=== PATIENT | female | born 1975 | race Caucasian/White ===

== ENCOUNTER 2016-11-19 20:17 | Inpatient (IN) | payer OTHER, MEDICARE ==
[~2016-11-19 20:17] MED LIST: CARA1TAB6 PO; CYCL1TAB29 PO; GABA600T PO; OMEP40CA2 PO; OXYM40TA5 PO; PERC10TA27 PO; PROM25TA10 PO; PROT40TA PO; TOPI200 PO; TRAZ300T2 PO; XANA2TAB2 PO; ZOFR4TAB3 SL
[2016-11-19] MEDS ORDERED: SODIUM CHLOR 0.9% 1000 ML INJ 1,000 ML IV SCH (21:59)
[2016-11-19] MEDS ORDERED: NALOXONE HCL 0.4 MG/ML AMP IV PRN (22:00)
[2016-11-19] MEDS ORDERED: SODIUM CHLORIDE 0.9% FLUSH 10 ML FLUSH IV FLUSH PRN (22:00)
[2016-11-20] VITALS (7 sets, daily range): BP systolic 136–157; BP diastolic 91–104; PULSE 90–109; RESP 17–20; TEMP 97.8–99.9; O2SAT 97–99
[2016-11-20] MEDS: HYDROmorphone HCL PF 1 MG/ML VIAL IV PUSH PRN ×6 (00:47→23:10)
[2016-11-20] MEDS: METOCLOPRAMIDE HCL 10 MG/2 ML VIAL IV PUSH PRN ×3 (00:48→18:08)
--- NOTE | 2016-11-20 01:12 | HHI.HP ---
HPI Service [facility] Primary Care Physician Non-Staff Admission Diagnosis Diagnoses: Travel History International Travel<30 Days: No Contact w/Intl Traveler <30 Da: No Traveled to Known Affected Are: No History of Present Illness History from patient, ER physician at [facility], and review of medical records. Patient herself is quite sleepy at the time of my exam. She is somewhat of a poor historian. She tells me that she came to the hospital because she was having nausea and vomiting for a few days. She reports she is still moving her bowels. Denies any blood in her vomitus. Denies fever. Apart from the above, patient denies any recent chest pain/palpitations/ shortness of breath. Denies any hematemesis/hematochezia/melena. Patient reports she is on pain medications at home. However cannot specify which ones. She also reports that she does have quite extensive surgeries previously. Review of Systems Except as stated in HPI: all other systems reviewed are Neg Past Family Social History Past Medical History Denies any medical conditions Past Surgical History Cholecystectomy Hysterectomy Exploratory laparotomy ORIF of mandible Allergies: Coded Allergies: Fentanyl (Verified Allergy, Severe, Rash, 11/19/16) Penicillin (Verified Allergy, Severe, BREAKS OUT, 11/19/16) Topamax (Verified Allergy, Severe, Rash, 11/19/16) Toradol (Verified Allergy, Severe, Rash, 11/19/16) Family History mom asthma Social History Reports she smokes a pack a day. Denies any alcohol abuse or drug abuse. Physical Exam Vital Signs Vital Signs Date Time Temp Pulse Resp B/P Pulse Ox O2 Delivery O2 Flow Rate FiO2 11/20/16 00:15 97.8 109 18 136/94 98 Physical Exam GENERAL: This is a well-nourished, well-developed patient, in no apparent distress. Quite sleepy. SKIN: No rashes, ecchymoses or lesions. Cool and dry. HEAD: Atraumatic. Normocephalic. No temporal or scalp tenderness. EYES:No scleral icterus. No injection or drainage. ENT: Nose without bleeding, purulent drainage or septal hematoma. Airway patent. NECK: Trachea midline. No JVD CARDIOVASCULAR: Regular rate and rhythm without murmurs, gallops, or rubs. RESPIRATORY: Clear to auscultation. Breath sounds equal bilaterally. No wheezes , rales, or rhonchi. GASTROINTESTINAL: Abdomen soft, tenderness diffusely. Scant bowel sounds., nondistended. No guarding. MUSCULOSKELETAL: Extremities without clubbing, cyanosis, or edema.No calf tenderness. NEUROLOGICAL: Awake and alert.Motor and sensory grossly within normal limits. Normal speech. Laboratory Labs from [facility] reviewed Imaging Imaging [facility]. Evidence of small bowel obstruction. Multiple loops of bowels dilated. Assessment and Plan Assessment and Plan Impression: Small bowel obstruction Nausea/vomitingsecondary to above Left femoral central lineplaced in ER for IV access Plan: Nothing by mouth. IV hydration. Pain control. NG tube was ordered and it seems that multiple nursing staff at [facility], and [facility] talked to patient in order to place this NG tube and patient repeatedly refused. I myself have also spoken to patient although she was quite sleepy regarding this. She again refused placement of NG tube. General surgery consult. Vascular ultrasound consult for peripheral IV. Once IVs obtained, discontinue femoral line. DVT prophylaxiswith SCD. GI prophylaxis on pantoprazole. Discussed Condition With Patient, ER physician, patient's nurse Physician Certification 2 Midnight Certification Type: Admission for Inpatient Services Order for Inpatient Services The services are ordered in accordance with Medicare regulations or non- Medicare payer requirements, as applicable. In the case of services not specified as inpatient-only, they are appropriately provided as inpatient services in accordance with the 2-midnight benchmark. Estimated LOS (days): 2 days is the estimated time the patient will need to remain in the hospital, assuming treatment plan goals are met and no additional complications. Post-Hospital Plan: Home Alisha Howard MD Nov 20, 2016 01:12
[2016-11-20] MEDS: ONDANSETRON HCL 4 MG/2 ML VIAL IVP PRN ×3 (03:40→22:03)
[2016-11-20 05:15] LABS: AUTOMATED NEUTROPHIL # 8.7 TH/MM3 (1.8-7.7); BASOPHIL % 0.3 % (0.0-2.0); EOSINOPHIL # 0.1 TH/MM3 (0-0.4); HEMATOCRIT 40.8 % (35.0-46.0); HEMO FLAGS DIFF FINAL; LYMPH % 11.8 % (9.0-44.0); LYMPHOCYTE # 1.3 TH/MM3 (1.0-4.8); MEAN CORPUSCULAR HEMOGLOBIN 29.8 PG (27.0-34.0); MEAN CORPUSCULAR HGB CONC 33.1 % (32.0-36.0); MONO % 7.3 % (0.0-8.0); NEUT % 79.6 % (16.0-70.0); PLATELET COUNT 235 TH/MM3 (150-450); RED BLOOD COUNT 4.53 MIL/MM3 (4.00-5.30); RED CELL DISTRIBUTION WIDTH 15.4 % (11.6-17.2); WHITE BLOOD COUNT 10.9 TH/MM3 (4.0-11.0)
[2016-11-20 05:41] LABS: POTASSIUM 3.6 MEQ/L (3.5-5.1)
[2016-11-20] MEDS ORDERED: HYDROmorphone HCL PF 1 MG/ML VIAL IV PRN ×2 (08:30→11:30)
[2016-11-20] MEDS: NS + KCL 20 MEQ INJ 1,000 ML IV SCH ×2 (09:19→19:25)
[2016-11-20] MEDS: PANTOPRAZOLE SODIUM 40 MG VIAL IV PUSH SCH (09:19)
[2016-11-20] MEDS: SODIUM CHLORIDE 0.9% FLUSH 10 ML FLUSH IV FLUSH SCH ×2 (09:20→19:24)
[2016-11-20] MEDS: NICOTINE 14 MG/24 HR PATCH T-DERMAL SCH (11:32)
[2016-11-20] MEDS ORDERED: LORazepam 2 MG/ML VIAL IV PUSH ONE (12:15)
--- NOTE | 2016-11-20 13:06 | PD.CONS ---
cc: Waqar Cabrera MD [facility] Service General Surgery Consult Requested By Dr. Howard Reason for Consult Small bowel obstruction Primary Care Physician Non-Staff History of Present Illness This is a 41-year-old female with a past medical history of panic attacks and anxiety who developed severe abdominal pain yesterday with nausea and vomiting. She was seen in the [facility] ED and [facility] for surgical evaluation. She denies any sick contacts. She has never had anything happen to like this before. A CT abdomen and pelvis was obtained that shows a small bowel obstruction in the pelvic cavity and a distended stomach. This was obtained with IV contrast only. A General Surgery consultation has been requested for evaluation of a small bowel obstruction. Review of Systems Constitutional: COMPLAINS OF: Fatigue, Dizziness Endocrine: DENIES: Polydipsia, Polyuria, Polyphagia Eyes: DENIES: Blurred vision, Diplopia Ears, nose, mouth, throat: DENIES: Hearing loss Respiratory: DENIES: Apneas, Cough Cardiovascular: DENIES: Chest pain Gastrointestinal: COMPLAINS OF: Abdominal pain, Nausea, Vomiting, DENIES: Constipation, Diarrhea Genitourinary: DENIES: Urinary frequency Musculoskeletal: DENIES: Joint pain Integumentary: DENIES: Abnormal pigmentation Hematologic/lymphatic: DENIES: Bruising Immunologic/allergic: DENIES: Eczema Neurologic: COMPLAINS OF: Headache, DENIES: Abnormal gait Psychiatric: DENIES: Confusion, Mood changes, Depression Past Family Social History Past Medical History Panic attacks Anxiety Past Surgical History Laparoscopic cholecystectomy Total abdominal hysterectomy ORIF of mandible Reported Medications Zofran Gabapentin Topamax Trazodone Xanax Flexeril Percocet Opana Phenergan Carafate Omeprazole Allergies: Coded Allergies: Fentanyl (Verified Allergy, Severe, Rash, 11/19/16) Penicillin (Verified Allergy, Severe, BREAKS OUT, 11/19/16) Topamax (Verified Allergy, Severe, Rash, 11/19/16) Toradol (Verified Allergy, Severe, Rash, 11/19/16) Active Ordered Medications Current Medications Medications (Trade) Dose Ordered Sig/Heavenly Route Start Time Stop Time Status Last Admin (NS Flush) 2 ml UNSCH PRN IV FLUSH 11/19/16 22:00 (NS Flush) 2 ml BID IV FLUSH 11/20/16 09:00 11/20/16 09:20 (Zofran Inj) 4 mg Q6H PRN IVP 11/19/16 22:00 11/20/16 03:40 (Narcan Inj) 0.4 mg UNSCH PRN IV 11/19/16 22:00 (Dilaudid Pf Inj) 0.2 mg Q4H PRN IV PUSH 11/19/16 22:15 11/20/16 09:20 Metoclopramide HCl 5 mg 5 mg Q8H PRN IV PUSH 11/20/16 00:45 11/20/16 08:39 (NS + KCl 20 Meq Inj) 1,000 ml @ 100 mls/hr Q10H IV 11/20/16 08:30 11/20/16 09:19 (Protonix Inj) 40 mg DAILY IV PUSH 11/20/16 09:00 11/20/16 09:19 (Dilaudid Pf Inj) 0.1 mg Q3H PRN IV 11/20/16 11:30 (Habitrol 14 Mg Patch.24 Hr) 1 patch DAILY T-DERMAL 11/20/16 11:00 11/20/16 11:32 Miscellaneous Information 1 DAILY T-DERMAL 11/21/16 09:00 (Ativan Inj) 0.5 mg ONCE ONCE IV PUSH 11/20/16 12:15 11/20/16 12:16 11/20/16 12:20 Family History Noncontributory Social History Positive tobacco use approximately 1 pack per day Denies EtOH use Denies illicit drug use Physical Exam Vital Signs Vital Signs Date Time Temp Pulse Resp B/P Pulse Ox O2 Delivery O2 Flow Rate FiO2 11/20/16 08:00 99.9 93 18 154/104 99 11/20/16 04:15 99.1 97 18 157/94 98 11/20/16 00:15 97.8 109 18 136/94 98 11/20/16 00:11 107 Physical Exam GENERAL: Anxious 41-year-old female resting in bed SKIN: Warm and dry. HEAD: Atraumatic. Normocephalic. EYES: Pupils equal and round. No scleral icterus. No injection or drainage. ENT: No nasal bleeding or discharge. Mucous membranes pink and moist. NECK: Trachea midline. CARDIOVASCULAR: Regular rate and rhythm. RESPIRATORY: No accessory muscle use. Clear to auscultation. Breath sounds equal bilaterally. GASTROINTESTINAL: Abdomen soft, tenderness with palpation in LEFT lower quadrant; non distended. MUSCULOSKELETAL: Extremities without clubbing, cyanosis, or edema. No obvious deformities. NEUROLOGICAL: Awake and alert. No obvious cranial nerve deficits. Motor grossly within normal limits. Five out of 5 muscle strength in the arms and legs. Normal speech. PSYCHIATRIC: Appropriate mood and affect; insight and judgment normal. Laboratory Laboratory Tests Test 11/20/16 05:05 White Blood Count 10.9 Red Blood Count 4.53 Hemoglobin 13.5 Hematocrit 40.8 Mean Corpuscular Volume 90.0 Mean Corpuscular Hemoglobin 29.8 Mean Corpuscular Hemoglobin 33.1 Concent Red Cell Distribution Width 15.4 Platelet Count 235 Mean Platelet Volume 8.5 Neutrophils (%) (Auto) 79.6 Lymphocytes (%) (Auto) 11.8 Monocytes (%) (Auto) 7.3 Eosinophils (%) (Auto) 1.0 Basophils (%) (Auto) 0.3 Neutrophils # (Auto) 8.7 Lymphocytes # (Auto) 1.3 Monocytes # (Auto) 0.8 Eosinophils # (Auto) 0.1 Basophils # (Auto) 0.0 CBC Comment DIFF FINAL Differential Comment Sodium Level 139 Potassium Level 3.6 Chloride Level 108 Carbon Dioxide Level 24.0 Anion Gap 7 Blood Urea Nitrogen 7 Creatinine 0.60 Estimat Glomerular Filtration 110 Rate Random Glucose 95 Calcium Level 8.1 Result Diagram: 11/20/16 0505 11/20/[address] abdomen shows small bowel obstruction appears to be in the pelvic cavity; stomach distended KUB- multiple air-filled loops of small bowel Assessment and Plan Assessment and Plan 41 year old female with SBO; constipation -NPO; suggest NPO placement -Tap water enemas until clear -Gastrografin enema in radiology -Pain control -Will attempt nonsurgical treatment -Thank you for this consult; we will continue to follow Attending Note - Dr. Cabrera Patient seen and examined Abdomen soft and minimally tender; non-distended Likely related to chronic narcotic use The exam, history, and the medical decision-making described in the above note were completed with the assistance of the mid-level provider. I reviewed and agree with the findings presented. I attest that I had a [id number] encounter with the patient on the same day, and personally performed and documented my assessment and findings in the medical record. Discussed Condition With Lynnette Haywood RN, Ms. Nov 20, 2016 13:06 Waqar Cabrera MD Nov 21, 2016 06:21
[2016-11-20] MEDS ORDERED: DIATRIZOATE MEGLUM/DIATRIZOATE SOD 120 ML BTL (for RAD DIAG) RECTAL ONE (13:20)
--- NOTE | 2016-11-20 14:07 | HHI.PR ---
Subjective Remarks F/u SBO. Now stooling still with lower abdominal pain. Patient has chronic back pain and migraine. She was counseled regarding narcotic use. Discussed with RN who will obtain medication list Objective Vitals Vital Signs Date Time Temp Pulse Resp B/P Pulse Ox O2 Delivery O2 Flow Rate FiO2 11/20/16 08:00 99.9 93 18 154/104 99 11/20/16 04:15 99.1 97 18 157/94 98 11/20/16 00:15 97.8 109 18 136/94 98 11/20/16 00:11 107 I/O 11/19/16 11/19/16 11/19/16 11/20/16 11/20/16 11/20/16 07:00 15:00 23:00 07:00 15:00 23:00 Intake Total 472 ml Output Total 350 ml Balance 122 ml Intake IV Total 472 ml Output Urine Total 350 ml Result Diagram: 11/20/16 0505 11/20/16 0505 Objective Remarks GENERAL: Well-developed, well-nourished in no distress SKIN: Warm and dry. HEAD: Atraumatic. Normocephalic. EYES: Pupils equal and round. No scleral icterus. No injection or drainage. ENT: No nasal bleeding or discharge. Mucous membranes pink and moist. NECK: Trachea midline. No JVD. CARDIOVASCULAR: Regular rate and rhythm. RESPIRATORY: No accessory muscle use. Clear to auscultation. Breath sounds equal bilaterally. GASTROINTESTINAL: Abdomen soft, tender lower quadrants, nondistended. MUSCULOSKELETAL: Extremities without clubbing, cyanosis, or edema. No obvious deformities. NEUROLOGICAL: Awake and alert. No obvious cranial nerve deficits. Motor grossly within normal limits. Five out of 5 muscle strength in the arms and legs. Normal speech. PSYCHIATRIC: Appropriate mood and affect; insight and judgment normal. Procedures none A/P Problem List: (1) Bowel obstruction ICD Code: K56.60 Status: Acute Assessment and Plan Small bowel obstruction with history of constipation from use of narcotics. Now stooling status post Gastrografin enema. Continue nothing by mouth, IV fluid and pain management minimize narcotic use. Nausea/vomitingsecondary to above Left femoral central lineplaced in ER for IV access. Discontinue once peripheral a access obtained Discontinue Renee catheter Chronic medical conditions of anxiety, panic attacks, chronic pain, hypertension and hyperlipidemia. Continue outpatient medications as appropriate. RN to confirm we will call patient's pharmacy Low risk for DVT Discharge Planning Not ready for discharge Andrez Montoya MD Nov 20, 2016 14:07
[2016-11-20] MEDS ORDERED: ENALAPRILAT 1.25 MG/ML VIAL IV PRN (14:15)
[2016-11-20] MEDS ORDERED: hydrALAZINE HCL 20 MG/ML VIAL IV PRN (14:15)
--- NOTE | 2016-11-20 15:05 | RADRPT ---
EXAM DATE/TIME: 11/20/2016 12:49 [facility] COMPARISON: No previous studies available for comparison. INDICATIONS : Constipation, abdomen pain, distention. FLUORO TIME: 2.0 minutes IMAGE COUNT: 10 CONTRAST: Gastroview MEDICAL HISTORY : Gastroesophageal reflux disease SURGICAL HISTORY : Cholecystectomy. Hysterectomy. ENCOUNTER: Initial ACUITY: 2 days PAIN SCORE: 10/10 LOCATION: Bilateral abdomen. FINDINGS: Initial highway administrative engineer film demonstrates a normal bowel gas pattern without obstruction or ileus. Surgical cl ips are noted within the right upper quadrant likely related to previous cholecystectomy. Gastrograf in flows freely through the entire colon to the cecum without obstruction. Fecal debris is noted thr oughout the colon. Post evacuation film demonstrates decompression of the colon with a moderate amou nt of fecal debris still remaining throughout the colon. CONCLUSION: Successful Gastrografin enema performed for constipation. No obstruction or extravasation is noted. Micky Caban MD on November 20, 2016 at 14:54 Board Certified Radiologist. This report was verified electronically.
[2016-11-20] MEDS: LORazepam 2 MG/ML VIAL IV PUSH PRN (17:02)
[2016-11-21 00:05] VITALS: BP 154/78; PULSE 93; RESP 17; TEMP 98.5; O2SAT 99
[2016-11-21] MEDS: LORazepam 2 MG/ML VIAL IV PUSH PRN ×2 (01:47→08:01)
[2016-11-21] MEDS: METOCLOPRAMIDE HCL 10 MG/2 ML VIAL IV PUSH PRN (01:53)
[2016-11-21] MEDS: HYDROmorphone HCL PF 1 MG/ML VIAL IV PUSH PRN ×3 (03:40→16:24)
[2016-11-21] MEDS: NS + KCL 20 MEQ INJ 1,000 ML IV SCH ×2 (03:41→14:30)
[2016-11-21 04:05] VITALS: BP 151/89; PULSE 83; RESP 17; TEMP 98; O2SAT 99
[2016-11-21] MEDS: ONDANSETRON HCL 4 MG/2 ML VIAL IVP PRN ×3 (04:33→16:23)
[2016-11-21 07:59] VITALS: PULSE 78
[2016-11-21] MEDS: NICOTINE 14 MG/24 HR PATCH T-DERMAL SCH (07:59)
[2016-11-21] MEDS: SODIUM CHLORIDE 0.9% FLUSH 10 ML FLUSH IV FLUSH SCH (07:59)
[2016-11-21 08:00] VITALS: BP 146/84; PULSE 83; RESP 18; TEMP 98.2; O2SAT 98
[2016-11-21] MEDS: PANTOPRAZOLE SODIUM 40 MG VIAL IV PUSH SCH (08:00)
[2016-11-21] MEDS ORDERED: REMOVE OLD PATCH T-DERMAL SCH (09:00)
--- NOTE | 2016-11-21 09:02 | RADRPT ---
EXAM DATE/TIME: 11/21/2016 08:17 [facility] COMPARISON: No previous studies available for comparison. INDICATIONS : Abdominal pain MEDICAL HISTORY : Gastroesophageal reflux disease SURGICAL HISTORY : Cholecystectomy. Hysterectomy. ENCOUNTER: Subsequent ACUITY: 3 days PAIN SCORE: 10/10 LOCATION: Bilateral abdomen FINDINGS: 2 frontal supine views of the abdomen demonstrate air within small and large bowel in a nonobstructiv e pattern. No organomegaly or abnormal calcifications are seen. No abnormal mass effect is appreciate d. The visualized bones demonstrates no abnormality. Cholecystectomy clips are present. CONCLUSION: No acute abdominal abnormality is identified. Jai Khan MD on November 21, 2016 at 8:58 Board Certified Radiologist. This report was verified electronically.
[2016-11-21] MEDS: ALPRAZolam 1 MG TAB PO SCH ×2 (10:13→13:00)
[2016-11-21] MEDS: GABAPENTIN 300 MG CAP PO SCH ×2 (10:14→13:00)
[2016-11-21] MEDS: SUCRALFATE 1 GM TAB PO SCH ×2 (10:34→13:00)
--- NOTE | 2016-11-21 10:45 | HHI.PR ---
Subjective Subjective Notes Wants to go home. She wants her omeprazole and soda and is going home at 3:00 when her daughter gets off work. She is having liquid stools, abdominal pain a little better. Objective Vitals/I&O Vital Signs Date Time Temp Pulse Resp B/P Pulse Ox O2 Delivery O2 Flow Rate FiO2 11/21/16 09:47 18 11/21/16 08:00 98.2 83 146/[address] abdomen shows small bowel obstruction appears to be in the pelvic cavity; stomach distended KUB- multiple air-filled loops of small bowel Abdomen: Non-distended, Non-tender A/P Assessment and Plan s/p GGE, plain xrays look good, no sign of obstruction. Plan, advance diet, resume PPI by mouth, OK for [place] home from surgical standpoint. Justin Hernandez MD Nov 21, 2016 10:45
[2016-11-21 11:58] VITALS: BP 141/82; PULSE 72; RESP 18; TEMP 99; O2SAT 100
[2016-11-21 12:43] LABS: AUTOMATED NEUTROPHIL # 7.1 TH/MM3 (1.8-7.7); BASOPHIL # 0.1 TH/MM3 (0-0.2); BASOPHIL % 0.6 % (0.0-2.0); EOSINOPHIL % 0.4 % (0.0-4.0); HEMATOCRIT 37.7 % (35.0-46.0); HEMO FLAGS DIFF FINAL; LYMPH % 16.6 % (9.0-44.0); LYMPHOCYTE # 1.6 TH/MM3 (1.0-4.8); MEAN CELL VOLUME 88.7 FL (80.0-100.0); MEAN CORPUSCULAR HEMOGLOBIN 30.1 PG (27.0-34.0); MEAN CORPUSCULAR HGB CONC 33.9 % (32.0-36.0); MONO % 8.1 % (0.0-8.0); NEUT % 74.3 % (16.0-70.0); PLATELET COUNT 251 TH/MM3 (150-450); RED BLOOD COUNT 4.25 MIL/MM3 (4.00-5.30); RED CELL DISTRIBUTION WIDTH 15.2 % (11.6-17.2); WHITE BLOOD COUNT 9.6 TH/MM3 (4.0-11.0)
[2016-11-21 12:55] LABS: BICARBONATE 17.7 MEQ/L (21.0-32.0); MAGNESIUM 1.8 MG/DL (1.5-2.5); POTASSIUM 3.4 MEQ/L (3.5-5.1)
[2016-11-21] MEDS ORDERED: PANTOPRAZOLE SOD 40 MG DELAYED RELEASE TAB PO SCH (13:00)
[2016-11-21] MEDS ORDERED: PERI8.6T PO (13:39)
[2016-11-21] MEDS ORDERED: MAG-LIQ PO (13:39)
--- NOTE | 2016-11-21 13:40 | HHI.PR ---
Subjective Remarks Follow-up SBO. Tolerating diet. Stooling. Complains of burning epigastric pain and history of GERD. She wants to go home because of recent in the family. Discussed with general surgery, cleared for discharge. Discussed with RN Objective Vitals Vital Signs Date Time Temp Pulse Resp B/P Pulse Ox O2 Delivery O2 Flow Rate FiO2 11/21/16 11:58 99.0 72 18 141/82 100 11/21/16 09:47 18 11/21/16 08:00 98.2 83 18 146/84 98 11/21/16 04:05 98.0 83 17 151/89 99 11/21/16 00:05 98.5 93 17 154/78 99 11/20/16 20:05 98.6 90 17 146/91 97 11/20/16 20:00 96 11/20/16 16:00 98.8 106 20 146/94 97 I/O 11/20/16 11/20/16 11/20/16 11/21/16 11/21/16 11/21/16 07:00 15:00 23:00 07:00 15:00 23:00 Intake Total 472 ml 895 ml 660 ml Output Total 350 ml Balance 122 ml 895 ml 660 ml Intake Oral 240 ml IV Total 472 ml 655 ml 660 ml Output Urine Total 350 ml # Voids 2 4 # Bowel Movements 3 2 Result Diagram: 11/21/16 1207 11/21/16 1207 Imaging Last Impressions Abdomen X-Ray 11/21/16 0000 Signed Impressions: Service Date/Time: Monday, November 21, 2016 08:17 - CONCLUSION: No acute abdominal abnormality is identified. Jai Khan MD Enema w/Water Soluble 11/20/16 0000 Signed Impressions: Service Date/Time: Sunday, November 20, 2016 12:49 - CONCLUSION: Successful Gastrografin enema performed for constipation. No obstruction or extravasation is noted. Micky Caban MD Objective Remarks GENERAL: Well-developed, well-nourished in no distress SKIN: Warm and dry. HEAD: Atraumatic. Normocephalic. EYES: Pupils equal and round. No scleral icterus. No injection or drainage. ENT: No nasal bleeding or discharge. Mucous membranes pink and moist. NECK: Trachea midline. No JVD. CARDIOVASCULAR: Regular rate and rhythm. RESPIRATORY: No accessory muscle use. Clear to auscultation. Breath sounds equal bilaterally. GASTROINTESTINAL: Abdomen soft, nontender, nondistended. MUSCULOSKELETAL: Extremities without clubbing, cyanosis, or edema. No obvious deformities. NEUROLOGICAL: Awake and alert. No obvious cranial nerve deficits. Motor grossly within normal limits. Five out of 5 muscle strength in the arms and legs. Normal speech. PSYCHIATRIC: Appropriate mood and affect; insight and judgment normal. Procedures none A/P Problem List: (1) Bowel obstruction ICD Code: K56.60 Status: Acute Assessment and Plan Small bowel obstruction with history of constipation from use of narcotics. Now stooling status post Gastrografin enema. Tolerating regular diet and continue supportive care and pain management minimize narcotic use. Nausea/vomitingsecondary to above Mild acidosis secondary to above. Repeat BMP and magnesium after hydration Left femoral central lineplaced in ER for IV access. Discontinue once peripheral a access obtained Discontinued Renee catheter GERD. PPI and add antacids. Antireflux mechanisms discussed with patient Chronic medical conditions of anxiety, panic attacks, chronic pain, hypertension and hyperlipidemia. Continue outpatient medications as appropriate. Low risk for DVT Discharge Planning Discharge patient to home Condition on discharge: Improved Regular Diet as tolerated Ad Apple activity no driving Rx written: Norma-Colace Follow-up with primary care physician in one week I spent 35 minutes [id number] with the patient or on the blake discussing the patient's disposition, prognosis, and plan of care with patient's caregivers. Over half the time spent was devoted to counseling the patient regarding placement in coordinating care with caregivers Andrez Montoya MD Nov 21, 2016 13:40
--- NOTE | 2016-11-21 13:40 | HHI.DCPOC ---
Discharge Care Plan Diagnosis: (1) Bowel obstruction Your Health Problems Are: Difficulty with ADL Exercise Tolerance Goals to Promote Your Health * To prevent worsening of your condition and complications * To maintain your health at the optimal level Directions to Meet Your Goals Take your medications as prescribed Follow your dietary instruction Follow activity as directed Keep your appointments as scheduled Take your immunizations and boosters as scheduled If your symptoms worsen call your PCP, if no PCP go to Urgent Care Center or Emergency Room Smoking is Dangerous to Your Health. Avoid second hand smoke Call the 24-hour hour crisis hotline for domestic abuse at Andrez Montoya MD Nov 21, 2016 13:40
[2016-11-21] MEDS ORDERED: CALCIUM CARBONATE 500 MG CHEWABLE TAB CHEW PRN (13:45)
[2016-11-21] MEDS ORDERED: POTASSIUM CHLORIDE 20 MEQ CONTROLLED RELEASE TAB PO ONE (13:45)
[2016-11-21] MEDS ORDERED: ALUMINUM/MAGNESIUM/SIMETH 30 ML CUP PO PRN (13:45)
[2016-11-21 16:00] VITALS: BP 160/96; PULSE 76; RESP 18; TEMP 98.5; O2SAT 100
[2016-11-21 16:26] LABS: BICARBONATE 23.1 MEQ/L (21.0-32.0); POTASSIUM 3.7 MEQ/L (3.5-5.1)
[2016-11-21] MEDS ORDERED: TOPIRAMATE 200 MG TAB PO SCH (21:00)
[2016-11-21] MEDS ORDERED: traZODone HCL 100 MG TAB PO SCH (21:00)
== END 2016-11-21 17:18 | disposition home or self-care (01) | DRG 389 ==
LOC: NEDDLT 20:17 → N06B 23:50
PROVIDERS: ADMIT Internal Medicine; ATTEND Internal Medicine
DX: K56.60 Unspecified intestinal obstruction (principal); E87.2 Acidosis; K59.00 Constipation, unspecified; Z79.891 Long term (current) use of opiate analgesic; F41.9 Anxiety disorder, unspecified; F41.0 Panic disorder [episodic paroxysmal anxiety]; F17.210 Nicotine dependence, cigarettes, uncomplicated; G89.29 Other chronic pain; M54.9 Dorsalgia, unspecified; G43.909 Migraine, unspecified, not intractable, without status migrainosus; K21.9 Gastro-esophageal reflux disease without esophagitis; I10 Essential (primary) hypertension; E78.5 Hyperlipidemia, unspecified
CPT/HCPCS: 74000; 74020; 74176; 74270; 76937; 80048; 81001; 83690; 83735; 85025; 96372; 99281; C9113; J1100; J1170; J1200; J2060; J2405; J2765; J3480; J7030; Q9963